=== PATIENT | female | born 1970 | race Two or more races ===

== ENCOUNTER 2018-10-17 11:10 | Outpatient (CLI) | payer OTHER ==
[~2018-10-17 11:10] MED LIST: ORPH100T PO
== END 2018-10-17 11:13 | disposition home or self-care (01) ==
LOC: MAMO-SONO 11:10
DX: N60.11 Diffuse cystic mastopathy of right breast (principal); Z12.31 Encounter for screening mammogram for malignant neoplasm of breast

== ENCOUNTER 2019-12-24 08:01 | Outpatient (CLI) | payer OTHER | END 2019-12-24 08:12 | disposition home or self-care (01) | LOC: SONOGRAMA 08:01 | DX: R10.84 Generalized abdominal pain (principal) ==

== ENCOUNTER 2020-01-03 17:25 | Emergency (ER) | payer OTHER ==
[~2020-01-03] VITALS: Ht 172.7 cm; Wt 81.6 kg
[2020-01-03] MEDS ORDERED: CLARINEX-D 121 EACH (17:35)
[2020-01-03] MEDS ORDERED: GILTUSS TR TAB1 EACH (17:36)
[2020-01-03] MEDS ORDERED: CHEST CONGESTI1 EAC1 (17:36)
[2020-01-03] MEDS ORDERED: PROAIR HFA8.5 GM (17:36)
[2020-01-03] MEDS ORDERED: IPRATROPIU0.2 MG/1 M (17:37)
== END 2020-01-03 20:10 | disposition home or self-care (01) ==
LOC: ER 17:25
DX: J06.9 Acute upper respiratory infection, unspecified (principal)

== ENCOUNTER 2020-05-30 10:00 | Outpatient (CLI) | payer OTHER | END 2020-05-30 15:00 | disposition home or self-care (01) | LOC: LAB 10:00 | PROVIDERS: ATTEND Obstetrics & Gynecology | DX: N60.11 Diffuse cystic mastopathy of right breast (principal) ==

== ENCOUNTER → 2020-05-30 | Outpatient (CLI) | payer OTHER ==
[~2020-05-30] MED LIST changes: +CHEST CONGESTI1 EAC1; +CLARINEX-D 121 EACH; +GILTUSS TR TAB1 EACH; +IPRATROPIU0.2 MG/1 M; +PROAIR HFA8.5 GM
== END | disposition home or self-care (01) ==
LOC: MAMO-SONO 09:36
PROVIDERS: ATTEND Obstetrics & Gynecology
DX: Z12.31 Encounter for screening mammogram for malignant neoplasm of breast (principal); N60.11 Diffuse cystic mastopathy of right breast

== ENCOUNTER 2021-05-31 10:17 | Emergency (ER) | payer OTHER ==
[~2021-05-31] VITALS: Ht 162.6 cm; Wt 65.8 kg
== END 2021-05-31 13:44 | disposition home or self-care (01) ==
LOC: ER 10:17
DX: S99.812A Other specified injuries of left ankle, initial encounter (principal)

== ENCOUNTER → 2021-06-05 | Outpatient (CLI) | payer OTHER | END | disposition home or self-care (01) | LOC: MRI 13:15 | PROVIDERS: ATTEND Orthopaedic Surgery | DX: S86.819A Strain of other muscle(s) and tendon(s) at lower leg level, unspecified leg, initial encounter (principal) | CPT/HCPCS: 73721 ==

== ENCOUNTER 2022-04-26 08:53 | Outpatient (CLI) | payer OTHER | END 2022-04-26 09:15 | disposition home or self-care (01) | LOC: SONOGRAMA 08:53 | PROVIDERS: ATTEND General Practice | DX: R22.41 Localized swelling, mass and lump, right lower limb (principal) ==

== ENCOUNTER → 2023-01-21 | Outpatient (CLI) | payer OTHER | END | disposition home or self-care (01) | LOC: MAMO-SONO 09:16 | PROVIDERS: ATTEND Obstetrics & Gynecology | DX: N60.11 Diffuse cystic mastopathy of right breast (principal) ==

== ENCOUNTER 2024-07-30 07:16 | Outpatient (CLI) | payer OTHER | END 2024-07-30 08:00 | disposition home or self-care (01) | LOC: MAMO-SONO 07:16 | PROVIDERS: ATTEND Obstetrics & Gynecology | DX: N60.11 Diffuse cystic mastopathy of right breast (principal) ==

== ENCOUNTER 2025-07-01 08:19 | Outpatient (CLI) | payer OTHER | END 2025-07-01 08:30 | disposition home or self-care (01) | LOC: SONOGRAMA 08:19 | DX: M25.552 Pain in left hip (principal) ==